=== PATIENT | female | born 2000 | race Caucasian/White ===

== ENCOUNTER 2022-04-26 11:13 | Observation (INO) | payer OTHER, SELFPAY ==
[2022-04-26] VITALS (13 sets, daily range): BP systolic 112; BP diastolic 70; PULSE 90–110; TEMP 36.4; O2SAT 97–99; BMI 31.1
--- NOTE | 2022-04-26 11:39 | OBADM ---
This patient, Ramona Murdock, admitted to the OB room 115 for observation for post fall evaluation. Patient/family oriented to hospital policies and general routines including ID bracelet, bed and alarms, visiting hours, pain management, procedures, bathroom and other care routines, personal items, smoking policy, room service/diet, and visiting hours. Patient/Family are encouraged to report perceived risks to care and to ask questions if they do not understand what they are told or what they should do.
--- NOTE | 2022-04-26 12:38 | PC.NURSE ---
Dr. Zaman informed of pt fall down the steps this morning around 0950. FHT's 145 with 10-12 beat accels at 30 wks gestation. Pt denies abdominal pain, tightening, or cramping. Denies leakage of fluid or vaginal bleeding. Pt has soreness in coccyx and right upper buttock where she landed. Blood type is A positive. OK to discharge to home.
--- NOTE | 2022-05-28 22:04 | PM.OBTRLD ---
OB - Triage/Final Diagnosis Visit Information Comments/Additional reasons for admission: I have assessed the risk for this patient, Ramona Murdock, and determined that she would benefit from observation care. Final Diagnosis (1) Sacrococcygeal pain: Code(s): M53.3 - Sacrococcygeal disorders, not elsewhere classified Status: Acute
== END 2022-04-26 12:50 | disposition home or self-care (01) ==
PROVIDERS: Admitting Provider Obstetrics & Gynecology; Visit Provider Obstetrics & Gynecology
DX: O26.893 Other specified pregnancy related conditions, third trimester (principal); M53.3 Sacrococcygeal disorders, not elsewhere classified; W10.9XXA Fall (on) (from) unspecified stairs and steps, initial encounter; Z3A.30 30 weeks gestation of pregnancy
CPT/HCPCS: G0378; G0379

== ENCOUNTER 2022-06-22 11:10 | Inpatient (IN) | payer OTHER, SELFPAY ==
[2022-06-22] VITALS (116 sets, daily range): BP systolic 87–148; BP diastolic 49–118; PULSE 58–141; RESP 16–18; TEMP 36.6–37.3; O2SAT 99–100; BMI 32.0
--- OUTSIDE RECORDS SUMMARY | 2022-06-22 11:15 | XMS_ITS | Encounter Summary ---
:2000 Author Reason for Visit OB visit Assessment and Plan Assessment Note Patient is _35_weeks . Discusse d plan. 1. Routine care Discussion Note: None recorded.Patient educational handouts: No information available. Plan of Care Reminders Provider Appointments None recorded. ? ? Lab None recorded. ? ? Referral None recorded. ? ? Procedures None recorded. ? ? Surgeries None recorded. ? ? Imaging None recorded. ? ? Medications Name Start Date ? ? albuterol sulfate HFA 90 mcg/actuation aerosol inhaler ? ID NOW COVID-19 Test Kit ? TEST DIRECTED TODAY Vitamin ? Virtussin AC 10 mg-100 mg/5 mL oral liquid ? Medications Administered None recorded. Vitals Height Weight BMI Blood Pressure 5 ft 2 in 223 lbs 40.8 kg/m2 129/79 mm[Hg] Results Lab Results None recorded. Allergies Code Code System Name Reaction Severity Onset 733 RxNorm Ampicillin ? ? ? Penicillins ? ? ? Problems Name Status Onset Date Source ? Amenorrhea Active 12/20/2017 History Detection Examination Active 12/20/2017 History Screening Active 01/02/2018 History , Childbirth and Puerperium Finding Active History , Childbirth and Puerperium Finding Active 10/2018 History Screening for Malformation Active 02/03/2018 History , Childbirth and Puerperium Finding Active 06/2018 History Gestation Period, 34 Weeks Active 05/29/2018 Histo ry Normal Pregnanc
--- OUTSIDE RECORDS SUMMARY | 2022-06-22 11:15 | XMS_ITS | Encounter Summary ---
:2000 Author Reason for Visit OB visit OB [id number] EDC 07/05/2022 LMP 09/28/2021 Assessment and Plan Assessment Note Patient is _38__weeks . Discuss ed plan. 1. Routine care Discussion Note: None [...] ft 2 in 223 lbs 40.8 kg/m2 142/85 mm[Hg] Results Lab Results None recorded. Allergies [...]
--- OUTSIDE RECORDS SUMMARY | 2022-06-22 11:15 | XMS_ITS | Encounter Summary ---
:2000 Author Reason for Visit None recorded. Assessment and Plan 1. Oligohydramnios ? US, obstetric, biophysical profile Discussion Note: None recorded.Patient educational handouts: No information available. Plan of Care Reminders Provider Appointments None recorded. ? ? Lab None recorded. ? ? Referral None recorded. ? ? Procedures None recorded. ? ? Surgeries None recorded. ? ? Imaging US, Obstetric, Biophysical Profile 06/13/2022 [place] Medications Name Start Date ? ? albuterol sulfate HFA 90 mcg/actuation aerosol inhaler ? ID NOW COVID-19 Test Kit ? TEST DIRECTED TODAY Vitamin ? Virtussin AC 10 mg-100 mg/5 mL oral liquid ? Medications Administered None recorded. Vitals None recorded. Results Lab Results None recorded. Allergies Code [...] 34 Weeks Active 05/29/2018 Histo ry Normal in Multigravida Active 05/29/2018 History Large Fetus Active 06/18/2018 History Gestation Period, 37 Weeks Active 06/18/2018 Histo
--- OUTSIDE RECORDS SUMMARY | 2022-06-22 11:15 | XMS_ITS | Encounter Summary ---
:2000 Author Reason for Visit None recorded. Assessment and Plan 1. Oligohydramnios ? US, obstetric, biophysical profile + non-stress test Discussion Note: None recorded.Patient educational handouts: No information available. Plan of Care Reminders Provider Appointments None recorded. ? ? Lab None recorded. ? ? Referral None recorded. ? ? Procedures None recorded. ? ? Surgeries None recorded. ? ? Imaging US, Obstetric, Biophysical Profile + 2 [place] Non-stress Test Medications Name Start Date ? ? albuterol [...] Active 05/29/2018 History Large Fetus Active 06/18/2018 Hist
--- OUTSIDE RECORDS SUMMARY | 2022-06-22 11:15 | XMS_ITS | Encounter Summary ---
[...] ? ? Imaging US, Obstetric, Biophysical Profile 06/22/2022 [place] Medications Name Start Date ? ? albuterol [...]
--- OUTSIDE RECORDS SUMMARY | 2022-06-22 11:15 | XMS_ITS | Encounter Summary ---
:2000 Author Reason for Visit None recorded. Assessment and Plan 1. screening ? US, obstetric, follow-up Discussion Note: None recorded.Patient educational handouts: No information available. Plan of Care Reminders Provider Appointments None recorded. ? ? Lab None recorded. ? ? Referral None recorded. ? ? Procedures None recorded. ? ? Surgeries None recorded. ? ? Imaging US, Obstetric, Follow-up 05/04/2022 [facility] Medications Name Start Date ? ? albuterol [...] Gestation Period, 37 Weeks Active 06/18/2018 Histo ry
--- OUTSIDE RECORDS SUMMARY | 2022-06-22 11:15 | XMS_ITS ---
:2000 Author Care Team Providers Name Role Phone Braxton Zaman Primary Care Provider Unavailable Allergies Code Code System Name Reaction Severity Status Onset 733 RxNorm Ampicillin ? ? Active ? Penicillins ? ? Active ? Medications Name Status Start Date Stop Date ? ? albuterol sulfate HFA 90 mcg/actuation aerosol Active ? Not available inhaler benzonatate 100 mg capsule Completed ? 08/16 Depo-Provera 150 mg/mL intramuscular suspension Unknown ? Not available Inject 1 mL every 3 months by intramuscular route. doxycycline hyclate 100 mg tablet Completed ? 03/08/2022 ID NOW COVID-19 Test Kit Active ? Not frannie ilable TEST DIRECTED TODAY 11/30 (28) 1 mg-20 mcg (21)/75 mg (7) tablet Completed ? 03/08/2022 TAKE 1 TABLET BY MOUTH ONCE DAILY CONTINOUSLY Macrobid 100 mg capsule Completed 06/10/2018 06/19/20 18 take 1 capsule by oral route every 12 hours with food Depo-Provera 150 mg/mL intramuscular syringe Active Not available inject 1 milliliter by intramuscular route every 3 months oseltamivir 75 mg capsule Completed ? 2019 Vitamin Active ? Not available Virtussin AC 10 mg-100 mg/5 mL oral liquid Active ? Not available Problems Name Status Onset Date Source ? Amenorrhea Active 12/20/2017 History Detection Examination Active 12/20/2017 History Screening Active 01/02/2018 History , Childbirth and Puerperium Finding Active History , Childbirth and Puerperium Finding Active 10/2018 History Screening for Malformation Active 02/03/2018 History , Childbirth and P
--- OUTSIDE RECORDS SUMMARY | 2022-06-22 11:15 | XMS_ITS | Encounter Summary ---
:2000 Author Reason for Visit OB visit Assessment and Plan Assessment Note Patient is ___weeks . Discussed plan. 1. Routine care Discussion Note: None [...] ft 2 in 223 lbs 40.8 kg/m2 123/77 mm[Hg] Results Lab Results None recorded. Allergies [...]
--- OUTSIDE RECORDS SUMMARY | 2022-06-22 11:15 | XMS_ITS | Encounter Summary ---
:2000 Author Reason for Visit None recorded. Assessment and Plan 1. Uterine size for dates discrepancy ? US, obstetric, follow-up Discussion Note: None recorded.Patient educational handouts: No information available. Plan of Care Reminders Provider Appointments None recorded. ? ? Lab None recorded. ? ? Referral None recorded. ? ? Procedures None recorded. ? ? Surgeries None recorded. ? ? Imaging US, Obstetric, Follow-up 06/01/2022 [facility] Medications Name Start Date ? [...]
--- OUTSIDE RECORDS SUMMARY | 2022-06-22 11:16 | XMS_ITS | Encounter Summary ---
:2000 Author Reason for Visit OB visit OB [id number] EDC 07/05/2022 LMP 09/28/2021 Assessment and Plan 1. Routine care Discussion Note: None recorded.Patient [...] BMI Blood Pressure 5 ft 2 in 225 lbs 41.2 kg/m2 116/80 mm[Hg] Results Lab Results None recorded. Allergies [...] Normal in Multigravida Active 05/29/2018 History Large Fe
--- OUTSIDE RECORDS SUMMARY | 2022-06-22 11:16 | XMS_ITS | Encounter Summary ---
[...] ? ? Imaging US, Obstetric, Biophysical Profile 05/11/2022 [place] Medications Name Start Date ? ? albuterol [...] Gestation Period, 37 Weeks Active 06/18/2018 Histo r
--- OUTSIDE RECORDS SUMMARY | 2022-06-22 11:16 | XMS_ITS | Encounter Summary ---
:2000 Author Reason for Visit OB visit OB [id number] EDC 07/05/2022 LMP 09/28/2021 Assessment and Plan [...]
--- OUTSIDE RECORDS SUMMARY | 2022-06-22 11:16 | XMS_ITS | Encounter Summary ---
[...] BMI Blood Pressure 5 ft 2 in 217 lbs 39.7 kg/m2 127/81 mm[Hg] Results Lab Results None recorded. Allergies [...]
--- OUTSIDE RECORDS SUMMARY | 2022-06-22 11:16 | XMS_ITS | Encounter Summary ---
[...] ? ? Imaging US, Obstetric, Biophysical Profile 06/07/2022 [place] Medications Name Start Date ? ? albuterol [...]
--- OUTSIDE RECORDS SUMMARY | 2022-06-22 11:16 | XMS_ITS | Encounter Summary ---
[...] ? Imaging US, Obstetric, Biophysical Profile 06/22/2022 [place] Medications Name Start Date ? ? albuterol [...]
--- OUTSIDE RECORDS SUMMARY | 2022-06-22 11:16 | XMS_ITS | Encounter Summary ---
[...] recorded. ? ? Imaging US, Obstetric, Follow-up 04/06/2022 [facility] Medications Name Start Date ? [...]
--- OUTSIDE RECORDS SUMMARY | 2022-06-22 11:16 | XMS_ITS | Encounter Summary ---
[...] BMI Blood Pressure 5 ft 2 in 219 lbs 40.1 kg/m2 128/81 mm[Hg] Results Lab Results None recorded. Allergies [...]
--- OUTSIDE RECORDS SUMMARY | 2022-06-22 11:16 | XMS_ITS | Encounter Summary ---
[...] BMI Blood Pressure 5 ft 2 in 220 lbs 40.2 kg/m2 126/82 mm[Hg] Results Lab Results None recorded. Allergies [...]
--- OUTSIDE RECORDS SUMMARY | 2022-06-22 11:16 | XMS_ITS | Encounter Summary ---
[...] Imaging US, Obstetric, Biophysical Profile + 2 [place] Non-stress Test Medications Name Start Date ? [...]
--- NOTE | 2022-06-22 11:29 | LDADM ---
This patient, Ramona Murdock, was admitted to Labor/Delivery/Recovery 107 on 06/22/22 at 11:10. Plans for labor, pain management and were discussed with patient. Patient/family oriented to hospital policies and general routines including ID bracelet, bed and alarms, visiting hours, pain management, procedures, bathroom and other care routines, personal items, smoking policy, room service/diet and guest tray routines, security routines, and visiting hours. Patient/Family are encouraged to report perceived risks to care and to ask questions if they do not understand what they are told or what they should do. See OBIX for further documentation.
[2022-06-22 11:41] LABS: Basophils Percent Auto 0.2 % (0.2-1.2); Eosinophils Percent Auto 0.3 % (0-4.4); Hematocrit 35.9 % (37.0-47.0); Hemoglobin 11.5 g/dL (12.0-15.0); Immature Granulocyte Absolute 0.05 K/mm3 (0.00-0.031); Immature Granulocyte Percent A 0.5 % (0-0.5); Lymphocytes Absolute Auto 1.52 K/mm3 (0.9-3.2); Lymphocytes Percent Auto 16.6 % (18.3-44.2); Mean Corpuscular Hemoglobin 27.4 pg (26-34); Mean Corpuscular Volume 85.7 fl (80-100); Mean Platelet Volume 9.9 fl (7.4-10.4); Monocytes Absolute Auto 0.3 K/mm3 (0.1-0.6); Monocytes Percent Auto 3.6 % (2.6-8.5); Neutrophils Absolute Auto 7.2 K/mm3 (1.3-6.7); Neutrophils Percent Auto 78.8 % (45.5-73.1); Platelet Count Result 292 k/mm3 (150-375); Red Blood Count 4.19 M/mm3 (4.2-5.4); Red Cell Distribution Width 13.5 % (11.5-14.5); White Blood Count 9.2 K/mm3 (4.5-10.0)
[2022-06-22] MEDS: LACTATED RINGERS 1,000 ML 125 ML IV CONT (11:43)
[2022-06-22] MEDS: OXYTOCIN 30 UNITS/NS 500 ML 30 UNITS/500 ML BAG 6 UNITS IV CONT (11:46)
--- NOTE | 2022-06-22 12:48 | PM.IMHP ---
H&P: HPI History of Present Illness Date/Time: 06/22/22 12:48 Chief Complaint: induction of labor Narrative: Ramona is a 22yo at 38.1 for induction for oligohydramnios with REVA of 4 in office today. On pitocin. Just AROMed now, clear. Review of Systems Review of Systems: All systems reviewed & are unremarkable except as noted in HPI and below PMFSH Family History Family History (Updated 06/04/22 @ 14:17 by Altagracia Velarde RN) Grandparent Diabetes mellitus Heart disease Mother Gestational diabetes Social History Social History Smoking status: Never smoker Second hand tobacco smoke exposure: No Substance use: never Spiritual care concerns: No Meds Home Medications and Allergies Home Medications Medication Instructions Recorded Confirmed Type aspirin 81 mg chewable tablet 81 mg PO DAILY 04/26/22 06/22/22 History famotidine 20 mg tablet (Pepcid) 20 mg PO BID 04/26/22 06/22/22 History vit no.95-ferrous 1 tablet PO DAILY 04/26/22 06/22/22 History fumarate 28 mg-folic acid 800 mcg tablet () Allergies Allergy/AdvReac Type Severity Reaction Status Date / Time amoxicillin Allergy Mild RASH Verified 06/04/22 14:15 Penicillins Allergy Mild Rash Verified 06/04/22 14:15 Vital Signs Vital Signs - 24 hr 06/22/22 11:42 06/22/22 11:46 06/22/22 12:15 Temperature 98 F Pulse Rate 88 82 Blood Pressure 128/80 127/79 06/22/22 12:16 06/22/22 12:31 Temperature Pulse Rate 80 85 Blood Pressure 118/72 126/74 Exam Const: General: no acute distress Resp: Effort & Inspection: normal respiratory effort Auscultation: clear to auscultation bilaterally Cardio: Rate: regular rate Rhythm: regular rhythm GI: GI Palp: Yes Soft to palpation Extrem: General: normal to inspection H&P: Results Labs Labs: Short CBC 06/22/22 Range/Units 11:35 WBC 9.2 (4.5-10.0) K/mm3 Hgb 11.5 L (12.0-15.0) g/dL Hct 35.9 L (37.0-47.0) % Plt Count 292 (150-375) k/mm3 Assessment and Plan Assessment and plan (1) Oligohydramnios antepartum: Code(s): O41.00X0 - Oligohydramnios, unspecified trimester, not applicable or unspecified Status: Acute Plan GBS neg pitocin FHT category 1 AROM clear /-2
[2022-06-22] MEDS: LACTATED RINGERS 1,000 ML 999 ML IV CONT (14:53)
--- NOTE | 2022-06-22 15:15 | WPDANESEPPF ---
Anes - Initial Pre Proc Eval Date/Time: 06/22/22 15:15 Surgeon: Janice St MD Pre Op Diagnosis: Induction of Labor Patient Data Age: 22 Gender: F Height: 1.78 m Weight: 101.3 kg Last Vital Signs Temp 37.3 C 06/22/22 15:12 Pulse 103 H 06/22/22 15:13 BP 122/72 06/22/22 15:13 Pulse Ox 100 06/22/22 15:13 Allergies Allergy/AdvReac Type Severity Reaction Status Date / Time amoxicillin Allergy Mild RASH Verified 06/04/22 14:15 Penicillins Allergy Mild Rash Verified 06/04/22 14:15 Home Medications Medication Instructions Recorded Confirmed Type aspirin 81 mg chewable tablet 81 mg PO DAILY 04/26/22 06/22/22 History famotidine 20 mg tablet (Pepcid) 20 mg PO BID 04/26/22 06/22/22 History vit no.95-ferrous 1 tablet PO DAILY 04/26/22 06/22/22 History fumarate 28 mg-folic acid 800 mcg tablet () Laboratory Tests 06/22/22 06/22/22 06/22/22 11:35 11:35 11:35 WBC 9.2 K/mm3 K/mm3 (4.5-10.0) RBC 4.19 M/mm3 L M/mm3 (4.2-5.4) Hgb 11.5 g/dL L g/dL (12.0-15.0) Hct 35.9 % L % (37.0-47.0) MCV 85.7 fl fl (80-100) MCH 27.4 pg pg (26-34) MCHC 32.0 g/dl g/dl (32-36) RDW 13.5 % % (11.5-14.5) Plt Count 292 k/mm3 k/mm3 (150-375) MPV 9.9 fl fl (7.4-10.4) Immature Gran % (Auto) 0.5 % % (0-0.5) Neut % (Auto) 78.8 % H % (45.5-73.1) Lymph % (Auto) 16.6 % L % (18.3-44.2) [place] % (Auto) 3.6 % % (2.6-8.5) Eos % (Auto) 0.3 % % (0-4.4) Baso % (Auto) 0.2 % % (0.2-1.2) Lymph # (Auto) 1.52 K/mm3 K/mm3 (0.9-3.2) [place] # (Auto) 0.3 K/mm3 K/mm3 (0.1-0.6) Eos # (Auto) 0.0 K/mm3 K/mm3 (0-0.3) Baso # (Auto) 0.0 K/mm3 K/mm3 (0.0-0.1) Abs Immat Gran (auto) 0.05 K/mm3 H K/mm3 (0.00-0.031) Absolute Neuts (auto) 7.2 K/mm3 H K/mm3 (1.3-6.7) Absolute Nucleated RBC 0.0 K/mm3 K/mm3 (0.0-0.012) Nucleated RBC % 0.0 % % (0.0-0.2) RPR Pending Blood Type A Positive Antibody Screen Negative Patient hx anesthesia problems: none Family hx anesthesia problems: none Results Review: All pre-operative results and documents have been reviewed as part of the pre-operative evaluation. [facility] Family History Family History Grandparent Diabetes mellitus Heart disease Mother Gestational diabetes Social History Social History Smoking status: Never smoker Second hand tobacco smoke exposure: No Substance use: never Spiritual care concerns: No Anes - Eval Final PreProcedure Day of Procedure 06/22/22 15:15 Patient weight: obese Neurological: alert and oriented ASA classification: II Emergent: no Anesthetic plan: proceed Anesthesia type and monitoring: regional epidural and standard monitoring Results Review: All pre-operative results and documents have been reviewed as part of the pre-operative evaluation. Informed Consent: The patient's anesthetic plan and its attendant risks and benefits were discussed with the patient/family/POA. Questions were solicited and answers provided to the satisfaction of the patient/family/POA.
--- NOTE | 2022-06-22 17:45 | P.PCNOB_ITS ---
OB - Delivery Note Procedure Delivery date: 06/22/22 Procedure: Events: Oligohydramnios Induction method: AROM and Per Pitocin Protocol Delivery monitor: External FHT and External Uterine Route of delivery: [place] Description: Perineal - 2nd Degree Delivery repair: vicryl Specimen: No Quantitative Blood Loss (ml): 75 Anesthesia type: Epidural Disposition: Floor Narrative: With adequate expulsive efforts by the mother, the baby's head was delivered OA. The baby's anterior shoulder was delivered under the pubic symphysis without difficulty. The posterior shoulder and the rest of the baby delivered without difficulty. The infant was placed on the mothers chest and suctioned and stimulated. The cord was clamped and cut after 30 seconds. Mother and baby both stable. [place] Baby Date of : 06/22/22 Time of : 17:27 Weeks of gestation at delivery: 38 gender: Female Weight (pounds): 7 Weight (ounces): 11 presentation: vertex Placenta delivery description: Spontaneous Cord Vessel Description: 3 Vessels and Delayed Cord Clamping score one minute: 9 score five minutes: 9
[2022-06-22] MEDS: OXYTOCIN 30 UNITS/NS 500 ML 30 UNITS/500 ML BAG 125 UNITS IV CONT (18:09)
--- NOTE | 2022-06-22 20:43 | OBPPTRN ---
Patient transferred to post room #280 via wheel chair. Support person present, (Joseph, spouse). Oriented to unit, room, information board, rooming in, admission packet and security measures. Patient verbalizes understanding.
[2022-06-22] MEDS: ACETAMINOPHEN 325 MG TABLET 650 MG PO (22:58)
[2022-06-23] MEDS: IBUPROFEN 600 MG TABLET PO ×3 (02:36→15:52)
[2022-06-23] MEDS: ACETAMINOPHEN 325 MG TABLET 650 MG PO (04:12)
[2022-06-23 04:15] VITALS: BP 126/85; PULSE 98; RESP 18; TEMP 36.6; O2SAT 99
[2022-06-23 05:45] LABS: Hematocrit 31.5 % (37.0-47.0); Hemoglobin 9.9 g/dL (12.0-15.0)
--- NOTE | 2022-06-23 08:05 | P.PNOB_ITS ---
OB - PN: Subj Subjective Date/time seen: 06/23/22 08:05 Patient comments: no complaints and pain well controlled baby status: doing well [place] feeding status: breast and bottle feeding Narrative: Baby up from level 2 a few hours ago and doing well. OB - PN: Obj Data Labs CBC & Chem 7: 06/23/22 04:44 Labs: Laboratory Results - last 24 hr 06/22/22 06/22/22 06/23/22 11:35 11:35 04:44 WBC 9.2 RBC 4.19 L Hgb 11.5 L 9.9 L Hct 35.9 L 31.5 L MCV 85.7 MCH 27.4 MCHC 32.0 RDW 13.5 Plt Count 292 MPV 9.9 Immature Gran % (Auto) 0.5 Neut % (Auto) 78.8 H Lymph % (Auto) 16.6 L [place] % (Auto) 3.6 Eos % (Auto) 0.3 Baso % (Auto) 0.2 Lymph # (Auto) 1.52 [place] # (Auto) 0.3 Eos # (Auto) 0.0 Baso # (Auto) 0.0 Abs Immat Gran (auto) 0.05 H Absolute Neuts (auto) 7.2 H Absolute Nucleated RBC 0.0 Nucleated RBC % 0.0 Blood Type A Positive Antibody Screen Negative OB - PN A/P Plan day: 1 Plan: routine care Time Spent With Patient Time: Total time spent is greater than 50% in coordination of care (as documented) at patient's floor/unit and/or counseling patient: Time with patient: less than 15 minutes Exam Narrative: NAD abdomen soft, nontender, fundus firm below the umbilicus Extremities nontender, 1+ edema
[2022-06-23 08:18] VITALS: BP 119/77; PULSE 77; RESP 18; TEMP 36.5; O2SAT 100
[2022-06-23] MEDS: MULTIVIT/MIN/PREN/FOL AC/IRON TABLET 1 TAB PO (08:18)
[2022-06-23] MEDS: DOCUSATE SODIUM 100 MG CAPSULE PO ×2 (08:18→15:53)
[2022-06-23] MEDS: POLYSACCHARIDE IRON COMPLEX 150 MG CAPSULE PO ×2 (08:18→15:53)
[2022-06-23 11:36] VITALS: BP 116/74; PULSE 69; RESP 18; TEMP 36.3; O2SAT 100
[2022-06-23 15:52] VITALS: BP 117/73; PULSE 89; RESP 16; TEMP 36.4; O2SAT 100
[2022-06-23 20:30] VITALS: BP 119/69; PULSE 84; RESP 18; TEMP 36.8
[2022-06-24] MEDS: IBUPROFEN 600 MG TABLET PO ×2 (03:59→09:41)
--- NOTE | 2022-06-24 08:09 | PM.OBPNVD ---
OB - PN: Subj Subjective Date/time seen: 06/24/22 08:09 Patient comments: no complaints baby status: doing well and nursing well OB - PN: Obj Data Labs CBC & Chem 7: 06/23/22 04:44 OB - PN A/P Plan day: 2 Plan: routine care and discharge home Time Spent With Patient Time: Total time spent is greater than 50% in coordination of care (as documented) at patient's floor/unit and/or counseling patient: Time with patient: less than 15 minutes Exam Narrative: NAD abdomen soft, nontender, fundus firm below the umbilicus Extremities nontender, 1+ edema
--- NOTE | 2022-06-24 08:12 | PM.DS ---
DS: Admitting Diagnosis Discharge Date 06/24/22 Admitting Diagnosis term IUP, oligohydramnios DS: Discharge Diagnosis Discharge Diagnosis (1) Oligohydramnios antepartum: Code(s): O41.00X0 - Oligohydramnios, unspecified trimester, not applicable or unspecified Status: Acute (2) , delivered: Code(s): O80 - Encounter for full-term uncomplicated delivery Status: Acute DS: Summary Hospital Course Hospital Course: Ramona was admitted for oligohydramnios at term and induced with pitocin. She proceeded to have an uncomplicated vaginal delivery and course and was discharged home on day 2. Status at Discharge Functional status at discharge: independent ambulation Time Spent with Patient Time attestation: Total time spent providing and/or coordinating discharge services: Exam Narrative: NAD abdomen soft, appropriately tender Ext non tender, 1+ edema Discharge Plan Discharge Attending physician on discharge: Janice St Discharging Clinician: Janice St Anticipated Discharge Date/Time: 06/24/22 08:11 Patient Disposition: Home, Self-Care Activity: pelvic rest Diet: regular Patient Instructions: Antibiotic Form Stand Alone Forms: General Discharge Information Follow-up/Referrals: Janice St MD [Physician] - Discharge Medications: Continued PNV cmb#95-ferrous fumarate-FA [] 28 mg iron- 800 mcg Tablet 1 tablet PO DAILY Discontinued famotidine [Pepcid] 20 mg Tablet 20 mg PO BID aspirin 81 mg Tablet,Chewable 81 mg PO DAILY Date of admission: 06/22/22 11:10 Primary Care Provider: UNKNOWN,DOCTOR Admitting Provider: Janice St Attending physician on admission: Janice St Condition: Stable
[2022-06-24 09:40] VITALS: BP 118/73; PULSE 87; RESP 18; TEMP 36.4; O2SAT 100
[2022-06-24] MEDS: POLYSACCHARIDE IRON COMPLEX 150 MG CAPSULE PO (09:40)
[2022-06-24] MEDS: MULTIVIT/MIN/PREN/FOL AC/IRON TABLET 1 TAB PO (09:40)
--- NOTE | 2022-06-24 14:55 | PC.NURSE ---
2511 Patient was given the opportunity to view the discharge video Mother & Baby Care, The First Two Weeks and to ask questions. Patient declined viewing the video and has been given the mother/baby guide for home reference.
[2022-06-25 07:50] LABS: Rapid Plasma Reagin Non-Reactive (NonReactive)
== END 2022-06-24 12:44 | disposition home or self-care (01) | DRG 560 ==
LOC: ANHLDR 11:16 → ANHOB2 20:44
PROVIDERS: Admitting Provider Obstetrics & Gynecology; Visit Provider Obstetrics & Gynecology
DX: O41.03X0 Oligohydramnios, third trimester, not applicable or unspecified (principal); O70.1 Second degree perineal laceration during delivery; Z3A.38 38 weeks gestation of pregnancy; Z37.0 Single live birth
CPT/HCPCS: 36415; 85014; 85018; 85025; 86592; 86850; 86900; 86901; A9270; J2590; J2795; J7120

== ENCOUNTER 2022-10-08 17:25 | Emergency (ER) | payer OTHER, SELFPAY ==
[2022-10-08 17:47] VITALS: BP 137/81; PULSE 122; RESP 18; TEMP 36.8; O2SAT 100
--- NOTE | 2022-10-08 17:55 | ED.URI ---
HPI - URI/Sore Throat General Chief Complaint: Upper Respiratory Infection Stated Complaint: sorethroat Time Seen by Provider: 10/08/22 17:47 Source: patient Mode of arrival: ambulatory Limitations: no limitations History of Present Illness HPI Narrative: Mrs. Murdock a 22-year-old female patient presenting to the clinic today with complaints of sore throat, headache, body aches x1 day. She reports she had her son here over the weekend and he tested positive for strep. MD elicited complaint: sore throat Related Data Allergies Allergy/AdvReac Type Severity Reaction Status Date / Time amoxicillin AdvReac Mild RASH Verified 10/08/22 17:44 Penicillins AdvReac Mild Rash Verified 10/08/22 17:44 Review of Systems Review of Systems: Pertinent positives per HPI. Patient denies any fever, chills, rash, visual changes, dizziness, cough, shortness of breath, chest pain, palpitations, nausea, vomiting, diarrhea, constipation, abdominal pain, or any urinary issues. [facility] Family History Family History Grandparent Diabetes mellitus Heart disease Mother Gestational diabetes Social History Social History Smoking status: Never smoker Second hand tobacco smoke exposure: No Substance use: never Spiritual care concerns: No Comments At the time of my signature, I reviewed and agree with the nursing past medical, surgical, social, and family history. There is no relevant family history pertinent to the patient complaint. Exam Narrative: General: Well-developed, well nourished, in no apparent distress Head: Normocephalic, atraumatic Eyes: Pupils equally round and reactive to light bilaterally, EOM intact, sclera and conjunctive clear, no discharge, lids normal Ears: TMs intact and clear, ear canals clear, no drainage, grossly hearing normal. Nose: Nares patent, no discharge, no inflammation, no sinus tenderness. Mouth: Oral pharynx without lesions or masses, good dentition, MMM. Oropharynx red with swollen tonsil Neck: Supple, trachea midline, enlargement of anterior cervical nodes, no thyroid masses or goiter palpable. Cardio: Regular rate and rhythm, s1 and s2 normal, no murmur appreciated. Resp: Clear to auscultation bilaterally, no rhonchi, rales, wheezing or rubs Course Course Emergency Course: Portions of this record may have been created with voice recognition software. Level of Care: Express Care Visit Vital Signs Vital signs: Vital Signs Temperature 36.8 C 10/08/22 17:47 Pulse Rate 122 H 10/08/22 17:47 Respiratory Rate 18 10/08/22 17:47 Blood Pressure 137/81 10/08/22 17:47 Pulse Oximetry 100 10/08/22 17:47 Oxygen Delivery Room Air 10/08/22 17:47 Temperature 36.8 C 10/08/22 17:47 Pulse Rate 122 H 10/08/22 17:47 Respiratory Rate 18 10/08/22 17:47 Blood Pressure 137/81 10/08/22 17:47 Pulse Oximetry 100 10/08/22 17:47 Oxygen Delivery Room Air 10/08/22 17:47 Vital signs reviewed MDM - URI/Sore Throat MDM Narrative Medical decision making narrative: at the time of visit patient is resting comfortably on the exam table. Strep screen was obtained was positive in the clinic today. Prescription for azithromycin was sent to the pharmacy. Supportive measures were discussed with the patient she voiced understanding of discharge instructions and agrees to the treatment plan. Differential Diagnosis Differential diagnosis: Likely sinusitis, viral infection, influenza and pharyngitis Lab Data Labs: Strep Screen Positive Group A Strep *(Reference Range: Negative)* Discharge Plan Discharge Clinical Impression: Strep throat Patient Disposition: Home, Self-Care Condition: Stable Instructions: Antibiotic Form, Strep Throat (ED) Additional Instructions: Take prescription medications onl
== END 2022-10-08 18:00 | disposition home or self-care (01) ==
PROVIDERS: Emergency Provider Nurse Practitioner Family
DX: J02.0 Streptococcal pharyngitis (principal)
CPT/HCPCS: 87880; 99213; G0463

== ENCOUNTER 2023-01-11 09:20 | Emergency (ER) | payer OTHER, SELFPAY ==
[2023-01-11 09:36] VITALS: BP 133/77; PULSE 90; RESP 16; TEMP 36.4; O2SAT 100
--- NOTE | 2023-01-11 10:15 | ED.EAR ---
HPI - Ear Problem General Chief complaint: Ear Stated complaint: rt ear pain Time Seen by Provider: 01/11/23 10:15 Source: patient Mode of arrival: ambulatory Limitations: no limitations History of Present Illness HPI Narrative: 23-year-old female presented for complaint of right ear pain for about 1 week. Endorses decreased hearing, occasional dizziness and occasional tinnitus. Denies drainage, n/v/d/f/c. She endorses recent sinus congestion and drainage and has been taking Sudafed, Motrin, and antihistamines for symptoms. She denies sick contacts. MD Complaint: ear pain Related Data Home Medications Medication Instructions Recorded Confirmed norelgestromin 150 mcg-e.estradiol 1 patch WEEKLY 01/11/23 01/11/23 35 mcg/24 hr weekly transderm patch (Xulankassandra) Allergies Allergy/AdvReac Type Severity Reaction Status Date / Time amoxicillin AdvReac Mild RASH Verified 01/11/23 09:50 Penicillins AdvReac Mild Rash Verified 01/11/23 09:50 Review of Systems Review of Systems: CONSTITUTIONAL: Denies malaise, chills, or fever. EYES: Denies visual changes, redness, or discharge. ENT: Denies sinus pain and sore throat. Reports ear pain, rhinorrhea, congestion CARDIOVASCULAR: Denies chest pain, palpitations, or edema. RESPIRATORY: Denies cough or dyspnea. GASTROINTESTINAL: Denies abdominal pain, nausea, vomiting, diarrhea SKIN: Denies rash or itching. MUSCULOSKELETAL: Denies myalgia. All systems reviewed & are unremarkable except as noted in HPI and below PMFSH Past Medical History Medical History (Updated 01/11/23 @ 10:27 by Mary Johnson APRN) No pertinent past medical history Family History Family History Grandparent Diabetes mellitus Heart disease Mother Gestational diabetes Social History Social History Smoking status: Never smoker Second hand tobacco smoke exposure: No Substance use: never Spiritual care concerns: No Comments At time of signature, agree with nursing past medical, surgical, social and family history. There is no relevant family history pertinent to the presenting complaint Exam Narrative: GENERAL: appears in pain; no acute distress. HEAD: Normocephalic EYES: PERRLA, conjunctivae clear ENT: Nares clear. Mucous membranes moist. Left TM pearly balderas with dull light reflex, scar tissue; Right TM erythematous and bulging, tender; no tragal or mastoid tenderness. Oropharynx not erythematous. no drooling, no hoarseness, no trismus, uvula midline. NECK: Supple. No lymphadenopathy CHEST: Clear to auscultation, breath sounds equal. HEART: Regular rate and rhythm. No murmur heard. SKIN: Warm, dry, no rash. NEURO: Alert and oriented x3. PSYCH: Normal mood and affect Course Course Emergency Course: Patient is aware of diagnosis, understands and agrees to treatment plan. Anticipatory guidance given. Patient agrees to follow-up as directed and is aware of reasons to seek care at the emergency department. Portions of this record may have been created with voice recognition software Level of Care: Express Care Visit Vital Signs Vital signs: Vital Signs Temperature 97.5 F L 01/11/23 09:36 Pulse Rate 90 01/11/23 09:36 Respiratory Rate 16 01/11/23 09:36 Blood Pressure 133/77 01/11/23 09:36 Pulse Oximetry 100 01/11/23 09:36 Oxygen Delivery Room Air 01/11/23 09:36 Temperature 97.5 F L 01/11/23 09:36 Pulse Rate 90 01/11/23 09:36 Respiratory Rate 16 01/11/23 09:36 Blood Pressure 133/77 01/11/23 09:36 Pulse Oximetry 100 01/11/23 09:36 Oxygen Delivery Room Air 01/11/23 09:36 Reviewed Medical Decision Making MDM Narrative Medical decision making narrative: Right AOM. Advised supportive measures and signs/symptoms to go to the ER. Patient is appropriate for outpatient treatment and follow-up. Differential Diagnosis Differ
== END 2023-01-11 10:29 | disposition home or self-care (01) ==
PROVIDERS: Emergency Provider Nurse Practitioner Family
DX: H66.90 Otitis media, unspecified, unspecified ear (principal)
CPT/HCPCS: 99213; G0463

== ENCOUNTER 2023-08-21 12:53 | Emergency (ER) | payer OTHER, SELFPAY ==
[2023-08-21 13:02] VITALS: BP 132/71; PULSE 108; RESP 18; TEMP 36.8; O2SAT 100
--- NOTE | 2023-08-21 13:18 | ED.URI ---
HPI - URI/Sore Throat General Chief Complaint: Upper Respiratory Infection Stated Complaint: Sore Throat,Headache Time Seen by Provider: 08/21/23 13:14 Source: patient and RN notes reviewed Mode of arrival: ambulatory Limitations: no limitations History of Present Illness HPI Narrative: Patient presents today complaining of sore throat, fever up to 101, upset stomach, and headache since last night. Currently rates pain 5/10 and has been taking ibuprofen with mild relief. Related Data Home Medications Medication Instructions Recorded Confirmed norethindrone 1 mg-ethinyl 1 tablet PO DAILY 08/21/23 08/21/23 estradiol 20 mcg (24)-iron 75 mg (4) tablet (Liz 24 Fe) Allergies Allergy/AdvReac Type Severity Reaction Status Date / Time amoxicillin AdvReac Mild RASH Verified 08/21/23 12:56 Penicillins AdvReac Mild Rash Verified 08/21/23 12:56 Review of Systems Review of Systems: CONSTITUTIONAL: Denies body aches, chills, or sweats.+ fever EYES: Denies visual changes, redness, or discharge. ENT: Denies rhinorrhea, congestion, or otalgia.+ sore throat CARDIOVASCULAR: Denies chest pain, palpitations, or edema. RESPIRATORY: Denies cough or dyspnea. GASTROINTESTINAL: Denies abdominal pain, nausea, vomiting, or diarrhea.+ upset stomach GENITOURINARY: Denies dysuria or hematuria. SKIN: Denies rash, itching, or wounds. MUSCULOSKELETAL: Denies back pain, joint pain, or myalgia. NEUROLOGIC: Denies numbness, tingling, or weakness.+ headache PSYCH: Denies depression or anxiety. PMF Past Medical History Medical History No pertinent past medical history Family History Family History Grandparent Diabetes mellitus Heart disease Mother Gestational diabetes Social History Social History Smoking status: Never smoker Second hand tobacco smoke exposure: No Substance use: never Spiritual care concerns: No Comments At time of signature, I have reviewed and agree with nursing past medical, surgical, social and family history unless otherwise noted. Please see nursing chart for further information. There is no relevant family history pertinent to the presenting complaint Exam Narrative: GENERAL: Mildly ill-appearing, well-nourished, and in no acute distress. HEAD: Normocephalic, atraumatic. EYES: EOMI. No redness or drainage. Conjunctivae normal. ENT: Mucous membranes pink and moist. Nares clear. No rhinorrhea. TMs normal bilaterally. Throat erythematous with mild edema.. Uvula midline. NECK: Normal AROM. Supple. Mild anterior cervical chain lymphadenopathy CHEST: No respiratory distress. Clear to auscultation. HEART: Regular rate and rhythm. No murmur appreciated. Normal peripheral pulses. EXTREMITIES: Normal range of motion. No edema. SKIN: Warm, dry, no rash. Capillary refill normal. Normal skin turgor. NEURO: No focal deficits. Alert and oriented x3. Gait steady. PSYCH: Normal affect. No signs of depression or anxiety. Course Course Level of Care: Express Care Visit Vital Signs Vital signs: Vital Signs Temperature 98.3 F 08/21/23 13:02 Pulse Rate 108 H 08/21/23 13:02 Respiratory Rate 18 08/21/23 13:02 Blood Pressure 132/71 08/21/23 13:02 Pulse Oximetry 100 08/21/23 13:02 Oxygen Delivery Room Air 08/21/23 13:02 Temperature 98.3 F 08/21/23 13:02 Pulse Rate 108 H 08/21/23 13:02 Respiratory Rate 18 08/21/23 13:02 Blood Pressure 132/71 08/21/23 13:02 Pulse Oximetry 100 08/21/23 13:02 Oxygen Delivery Room Air 08/21/23 13:02 Reviewed. Pt has been instructed to follow up with her PCP regarding her elevated blood pressure today. MDM - URI/Sore Throat MDM Narrative Medical decision making narrative: Rapid strep positive. Prescription for Keflex sent to pharmac
== END 2023-08-21 13:24 | disposition home or self-care (01) ==
PROVIDERS: Emergency Provider Nurse Practitioner
DX: J02.0 Streptococcal pharyngitis (principal)
CPT/HCPCS: 87880; 99213; G0463

== ENCOUNTER 2023-10-05 14:42 | Emergency (ER) | payer SELFPAY ==
[2023-10-05 14:53] VITALS: BP 122/77; PULSE 121; RESP 18; TEMP 37.1; O2SAT 100
--- NOTE | 2023-10-05 15:25 | ED.URI ---
HPI - URI/Sore Throat General Chief Complaint: Upper Respiratory Infection Stated Complaint: Cough,Headache,Dizziness Time Seen by Provider: 10/05/23 14:44 Source: patient Mode of arrival: ambulatory Limitations: no limitations History of Present Illness HPI Narrative: 23-year-old female presents to [facility] complaints of fever, intermittent dizziness, body aches, chills, cough, nausea and vomiting for the past 2-3 days. Patient reports that her son was diagnosed with strep throat approximately 1 week ago. Patient has been taking [id number] Motrin, Tylenol and Vicks with minimal relief. Patient reports that she did not get her flu shot this season. Patient denies shortness of breath, wheezing, diarrhea, sore throat or ear pain. Patient is nonsmoker. Patient denies recent travel. MD elicited complaint: fever, rhinorrhea and nasal congestion Onset (ago): day(s) (3) Able to tolerate fluids by mouth: Yes Context: sick contacts Treatments prior to arrival: acetaminophen, ibuprofen and cold medicine Related Data Home Medications Medication Instructions Recorded Confirmed norethindrone 1 mg-ethinyl 1 tablet PO DAILY 08/21/23 08/21/23 estradiol 20 mcg (24)-iron 75 mg (4) tablet (Liz 24 Fe) Allergies Allergy/AdvReac Type Severity Reaction Status Date / Time amoxicillin AdvReac Mild RASH Verified 08/21/23 12:56 Penicillins AdvReac Mild Rash Verified 08/21/23 12:56 Review of Systems Constitutional: Constitutional: Reports chills, Denies fatigue, Reports fever(s) and Denies weakness ENT: Denies dizziness, Denies epistaxis, Denies nasal congestion and Denies sore throat Cardiovascular: Cardiovascular: Denies chest pain Respiratory: Respiratory: Reports cough, Denies dyspnea and Denies wheezing Gastrointestinal: Gastrointestinal: Denies abdominal pain, Denies diarrhea, Reports nausea and Reports vomiting Integumentary/Breasts: Skin/Breast: Denies erythema and Denies rash Neurologic: Denies dizziness, Denies syncope and Denies headache(s) [facility] Past Medical History Medical History No pertinent past medical history Family History Family History Grandparent Diabetes mellitus Heart disease Mother Gestational diabetes Social History Social History Smoking status: Never smoker Second hand tobacco smoke exposure: No Substance use: never Spiritual care concerns: No Comments At time of signature, I agree with nursing past medical, surgical, social and family history. There is no relevant family history pertinent to the presenting complaint. Exam Const: General: healthy appearing and no acute distress Nutritional Appearance: well nourished Orientation/consciousness: patient oriented x3 Limitations: no limitations HENMT: Head: normal to inspection Ears: external ears normal and TM's normal bilaterally Face/Nose/Sinus: Normal external nose present Face and sinus: normal facial exam and sinuses nontender Teeth and gingiva: dentition normal Throat: posterior oropharynx normal and uvula midline Eyes: Conjunctivae: conjunctivae normal Neck: Neck: normal visual inspection Resp: Effort & Inspection: normal respiratory effort and not labored Auscultation: clear to auscultation bilaterally, no crackles, no rales, no rhonchi and no wheezes Cardio: Rate: tachycardic Rhythm: regular rhythm Heart sounds: no murmurs Skin: General skin exam: normal color Rashes: no rashes Neuro: General: patient oriented x3 Psych: Affect: normal affect Attitude: cooperative Course Course Level of Care: Express Care Visit Vital Signs Vital signs: Vital Signs Temperature 37.1 C 10/05/23 14:53 Pulse Rate 121 H 10/05/23 14:53 Respiratory Rate 18 10/05/23 14:53 Blood Pressure 122/77 10/05/23 14:53 Pulse Oximetry 100 1
== END 2023-10-05 15:37 | disposition home or self-care (01) ==
PROVIDERS: Emergency Provider Nurse Practitioner Family
DX: J11.1 Influenza due to unidentified influenza virus with other respiratory manifestations (principal); Z20.822 Contact with and (suspected) exposure to COVID-19
CPT/HCPCS: 87081; 87426; 87804; 87880; 99213; C9803; G0463

== ENCOUNTER 2024-03-03 09:31 | Emergency (ER) | payer SELFPAY ==
[2024-03-03 10:08] VITALS: BP 119/72; PULSE 136; RESP 18; TEMP 36.8; O2SAT 99
--- NOTE | 2024-03-03 10:15 | ECG_ITS ---
SEE SCANNED COPY FOR CONFIRMED REPORT MTDD
--- NOTE | 2024-03-03 10:36 | ED.GENADULT ---
HPI - General Adult General Chief complaint: Upper Respiratory Infection Stated complaint: Sore Throat Source: patient Mode of arrival: ambulatory Limitations: no limitations History of Present Illness HPI narrative: Patient presents for evaluation of sore throat since yesterday. Reports associated hot flashes, chills, fatigue generalized body aches. Her son currently has strep. She denies any nausea, vomiting, diarrhea. She indicates her heart feels like it is racing. Her watch his notified her several times that her heart rate has been above 130 over the last 24 hrs. She states she has had periods of time where she has been tachycardic over the past eight years. When she was in high school she states her heart rate accelerated into the 190's during PE class. She was never referred to a medical professional for further workup. She states approximately once every three months she has periods of tachycardia with rates in 130-140's. She denies any chest pain or SOB during these episodes but does feel fatigued and her heart racing. She denies any stimulant use. She limits caffeine to one soda per day. States she is adherent to OC. Related Data Home Medications Medication Instructions Recorded Confirmed norethindrone 1 mg-ethinyl 1 tablet PO DAILY 08/21/23 03/03/24 estradiol 20 mcg (24)-iron 75 mg (4) tablet (Liz 24 Fe) Allergies Allergy/AdvReac Type Severity Reaction Status Date / Time amoxicillin AdvReac Mild RASH Verified 03/03/24 09:52 Penicillins AdvReac Mild Rash Verified 03/03/24 09:52 Review of Systems Review of Systems: CONSTITUTIONAL: Reports hot flashes, chills and fatigue. Denies objective fever EYES: Denies visual changes, redness, or discharge. ENT: Reports sore throat. Denies rhinorrhea, congestion, or otalgia. CARDIOVASCULAR: Reports sensation of racing heart rate. Denies chest pain or edema. RESPIRATORY: Denies cough or dyspnea. GASTROINTESTINAL: Denies abdominal pain, nausea, vomiting, or diarrhea. GENITOURINARY: Denies dysuria or hematuria. SKIN: Denies rash or itching. MUSCULOSKELETAL: Denies back pain, joint pain, or myalgia. NEUROLOGIC: Denies headache, numbness, dizziness, or weakness. PSYCHIATRIC: Denies anxiety or depression. [facility] Surgical History Surgical History History of tonsillectomy Family History Family History Grandparent Diabetes mellitus Heart disease Mother Gestational diabetes Social History Social History Smoking status: Never smoker Second hand tobacco smoke exposure: No Substance use: never Living arrangements: with family Gender identity (if verbalized by the patient): Female Spiritual care concerns: No Exam Narrative: GENERAL: Well-appearing, well-nourished, and in no acute distress. HEAD: Normocephalic, atraumatic. EYES: PERRLA and EOMI. ENT: Nares clear, no rhinorrhea or epistaxis. Mucous membranes moist. Posterior pharyngeal erythema without exudate. Uvula is midline. Bilateral TMs pearly balderas nonbulging NECK: Supple. No adenopathy or masses. No carotid bruits or JVD CHEST: Clear to auscultation. No respiratory distress. No wheezes rales or rhonchi HEART: Rate 140. Regular rhythm. No murmur heard. Normal peripheral pulses. ABDOMEN: Soft, nontender, nondistended, normal active bowel sounds. EXTREMITIES: Normal range of motion. No edema. SKIN: Warm, dry, no rash. NEURO: No focal deficits. Alert and oriented x3. PSYCH: Normal mood and affect. Course Course Emergency Course: This is a 24-year-old female who presented for evaluation of sore throat. Strep was positive. Will treat with cefdinir due to amoxicillin allergy. She has tolerated cephalosporins in the past. Her heart rate here was between 130-150 for the duration of her ti
== END 2024-03-03 10:30 | disposition short-term general hospital (02) ==
PROVIDERS: Emergency Provider Nurse Practitioner
DX: J02.0 Streptococcal pharyngitis (principal); R00.0 Tachycardia, unspecified
CPT/HCPCS: 87880; 93005; 99213; G0463

== ENCOUNTER 2024-03-03 10:59 | Emergency (ER) | payer MEDICAID, SELFPAY ==
--- NOTE | ~2024-03-03 | XR_ITS ---
EXAMINATION: XR chest 2V DATE: 03/03/2024 12:34 INDICATION: Tachycardia TECHNIQUE: frontal and lateral views of the chest were obtained. COMPARISON: None FINDINGS: The lungs are clear with no focal airspace opacities, pulmonary edema, pleural effusion or pneumothor ax. The cardiomediastinal silhouette is normal. Mild thoracic spondylosis. IMPRESSION: 1. No acute cardiopulmonary disease. Reviewed, dictated and finalized at location A.
[2024-03-03 11:05] VITALS: BP 129/97; PULSE 145; RESP 19; TEMP 37; O2SAT 100
--- NOTE | 2024-03-03 11:20 | ECG_ITS ---
SEE SCANNED COPY FOR CONFIRMED REPORT MTDD
[2024-03-03 11:27] VITALS: BP 111/81; PULSE 135; PULSE 138; RESP 20; O2SAT 100
[2024-03-03] MEDS: LACTATED RINGERS 2,000 ML 999 ML IV CONT (11:41)
[2024-03-03 11:48] LABS: Basophils Absolute Auto 0.1 K/mm3 (0.0-0.1); Basophils Percent Auto 0.3 % (0.2-1.2); Eosinophils Percent Auto 0.1 % (0-4.4); Hematocrit 43.3 % (37.0-47.0); Hemoglobin 14.1 g/dL (12.0-15.0); Immature Granulocyte Absolute 0.07 K/mm3 (0.00-0.031); Immature Granulocyte Percent A 0.4 % (0-0.5); Lymphocytes Absolute Auto 0.76 K/mm3 (0.9-3.2); Lymphocytes Percent Auto 4.5 % (18.3-44.2); Mean Corpuscular HGB Conc 32.6 g/dl (32-36); Mean Corpuscular Hemoglobin 28.5 pg (26-34); Mean Corpuscular Volume 87.7 fl (80-100); Mean Platelet Volume 9.8 fl (7.4-10.4); Monocytes Absolute Auto 0.5 K/mm3 (0.1-0.6); Monocytes Percent Auto 2.8 % (2.6-8.5); Neutrophils Absolute Auto 15.6 K/mm3 (1.3-6.7); Neutrophils Percent Auto 91.9 % (45.5-73.1); Platelet Count Result 232 k/mm3 (150-375); Red Blood Count 4.94 M/mm3 (4.2-5.4); Red Cell Distribution Width 12.8 % (11.5-14.5)
--- NOTE | 2024-03-03 11:58 | ED.ARRPALP ---
HPI - Arrhythmia/Palpitations General Chief Complaint: Arrhythmia/Palpitations Stated Complaint: high heart rate Time Seen by Provider: 03/03/24 11:20 History of Present Illness HPI narrative: This is a 24-year-old female, presents to the emergency department from urgent care for tachycardia. The patient states she was seen for sore throat diagnosed with strep pharyngitis, however her heart rate was noted to be in the 130s to 150s. She denies palpitations, chest pain or shortness of breath, though does feel fatigued. She has no other complaints at this time. Related Data Home Medications Medication Instructions Recorded Confirmed norethindrone 1 mg-ethinyl 1 tablet PO DAILY 08/21/23 03/03/24 estradiol 20 mcg (24)-iron 75 mg (4) tablet (Liz 24 Fe) Allergies Allergy/AdvReac Type Severity Reaction Status Date / Time amoxicillin AdvReac Mild RASH Verified 03/03/24 11:00 Penicillins AdvReac Mild Rash Verified 03/03/24 11:00 Review of Systems Review of Systems: CONSTITUTIONAL: Generalized fatigue Denies fever, chills, or sweats. EYES: Denies visual changes, redness, or discharge. ENT: Sore throat Denies rhinorrhea, congestion, or otalgia. CARDIOVASCULAR: Denies chest pain, palpitations, or edema. RESPIRATORY: Denies cough or dyspnea. GASTROINTESTINAL: Denies abdominal pain, nausea, vomiting, or diarrhea. GENITOURINARY: LMP 3 days ago. Denies dysuria or hematuria. SKIN: Denies rash or itching. MUSCULOSKELETAL: Denies back pain, joint pain, or myalgia. NEUROLOGIC: Denies headache, numbness, dizziness, or weakness. PSYCHIATRIC: Denies anxiety or depression. [facility] Surgical History Surgical History History of tonsillectomy Family History Family History Grandparent Diabetes mellitus Heart disease Mother Gestational diabetes Social History Social History Smoking status: Never smoker Second hand tobacco smoke exposure: No Substance use: never Living arrangements: with family Gender identity (if verbalized by the patient): Female Spiritual care concerns: No Exam Narrative: GENERAL: Well-developed, well-nourished, and in no acute distress. HEAD: Normocephalic, atraumatic. EYES: PERRLA and EOMI. ENT: Nares clear, no rhinorrhea or epistaxis. Mucous membranes moist. Oropharynx with tonsillar erythema, hypertrophy and exudate or other lesions. NECK: Supple. No adenopathy or masses. No carotid bruits or JVD CHEST: Clear to auscultation. No respiratory distress. No wheezes rales or rhonchi HEART: Tachycardic with regular rhythm. No murmur heard. Normal peripheral pulses. ABDOMEN: Soft, nontender, nondistended, normal active bowel sounds. EXTREMITIES: Normal range of motion. No edema. SKIN: Warm, dry, no rash. NEURO: Alert and oriented x3. No focal deficit. Moving all 4 limbs spontaneously PSYCH: Normal mood and affect. Course Course Emergency Course: 13:57 - Chest x-ray unremarkable. After 2 L IV fluids, patient's heart rate improved to the 1 teens. D-dimer negative, test negative. CBC demonstrates elevated white blood cell count of 17 that I attribute to her strep pharyngitis. Given the patient's family history of tachycardia without concerning cause, will discharge. I discussed the findings and recommendations with the patient. Discussed return and emergency precautions including signs/symptoms of ACS respiratory distress. The patient voiced understanding and agreement with the plan. All questions answered to her satisfaction. Vital Signs Vital signs: Vital Signs Temperature 98.6 F 03/03/24 11:05 Pulse Rate 145 H 03/03/24 11:05 Respiratory Rate 19 03/03/24 11:05 Blood Pressure 129/97 H 03/03/24 11:05 Pulse Oximetry 100 03/03/24 11:05 Oxygen Delivery Room Air 03/03/24 11:05 [place]
[2024-03-03 12:01] VITALS: BP 119/78; PULSE 121; RESP 13; O2SAT 100
[2024-03-03 12:08] LABS: Alanine Aminotransferase 23 U/L (6-35); Albumin Level 4.8 g/dL (3.5-5.1); Alkaline Phosphatase 94 U/L (38-126); Anion Gap 11 mmol/L (4-12); Aspartate Amino Transferase 33 U/L (14-36); Bilirubin,Total 1.3 mg/dL (0.2-1.3); Blood Urea Nitrogen 8 mg/dL (7-17); Carbon Dioxide 23 mmol/L (22-30); Chloride 100 mmol/L (98-107); Estimated CRCL calculation 132 ml/min; Estimated Glomerular Filt Rate > 60; Glucose 93 mg/dL (65-110); Potassium 3.5 mmol/L (3.4-5.0); Sodium 134 mmol/L (137-145)
[2024-03-03 12:12] LABS: D Dimer 0.37 ug/mL (<0.48)
[2024-03-03 12:21] VITALS: BP 126/89; PULSE 130; PULSE 134; RESP 17; O2SAT 100
[2024-03-03 12:33] VITALS: BP 124/80; PULSE 137; RESP 15; O2SAT 100
[2024-03-03 13:46] VITALS: BP 125/70; PULSE 138; RESP 19; O2SAT 100
[2024-03-03] MEDS: ACETAMINOPHEN 325 MG TABLET 650 MG PO (14:03)
== END 2024-03-03 14:11 | disposition home or self-care (01) ==
PROVIDERS: Emergency Provider Preventive Medicine Aerospace Medicine; Referring Provider Emergency Medicine
DX: R00.0 Tachycardia, unspecified (principal); J02.0 Streptococcal pharyngitis
CPT/HCPCS: 36415; 71046; 80053; 83735; 85025; 85380; 87880; 93005; 96360; 96361; 99284; A9270; J7120

== ENCOUNTER 2024-05-02 11:29 | Emergency (ER) | payer MEDICAID, SELFPAY ==
[2024-05-02 11:39] VITALS: BP 125/72; PULSE 129; RESP 20; TEMP 37.8; O2SAT 100
--- NOTE | 2024-05-02 11:51 | ED.GENADULT ---
HPI - General Adult General Chief complaint: Upper Respiratory Infection Stated complaint: throat pain/ rapid heart rate Time Seen by Provider: 05/02/24 11:53 Source: patient Mode of arrival: ambulatory Limitations: no limitations History of Present Illness HPI narrative: 24-year-old female patient presents to the [facility] with complaints of sore throat that started about 3:00 a.m. this morning. Patient states she has had fevers, body aches and chills. Patient states she has had a headache denies nausea vomiting. Patient states she was seen here in February and was diagnosed strep throat at that time does have history of tonsillectomy in the past. Related Data Home Medications Medication Instructions Recorded Confirmed norethindrone 1 mg-ethinyl 1 tablet PO DAILY 08/21/23 03/03/24 estradiol 20 mcg (24)-iron 75 mg (4) tablet (Liz 24 Fe) Allergies Allergy/AdvReac Type Severity Reaction Status Date / Time Penicillins Allergy Mild Rash Verified 05/02/24 11:39 amoxicillin AdvReac Mild RASH Verified 03/03/24 11:00 Review of Systems Review of Systems: CONSTITUTIONAL: positive fever, chills, and body aches, denies sweats. EYES: Denies visual changes, redness, or discharge. ENT: Denies rhinorrhea, congestion, Positive sore throat, denies otalgia. CARDIOVASCULAR: Denies chest pain, palpitations, or edema. RESPIRATORY: Denies cough or dyspnea. GASTROINTESTINAL: Denies abdominal pain, nausea, vomiting, or diarrhea. GENITOURINARY: Denies dysuria or hematuria. SKIN: Denies rash or itching. MUSCULOSKELETAL: Denies back pain, joint pain, or myalgia. NEUROLOGIC: positive headache, denies numbness, or weakness. PSYCHIATRIC: Denies anxiety or depression. [facility] Surgical History Surgical History History of tonsillectomy Family History Family History Grandparent Diabetes mellitus Heart disease Mother Gestational diabetes Social History Social History Smoking status: Never smoker Second hand tobacco smoke exposure: No Substance use: never Living arrangements: with family Gender identity (if verbalized by the patient): Female Spiritual care concerns: No Comments At the time of my signature I agree with nursing past medical history, surgical, social, and family history. There is no relevant family history pertinent to the presenting complaint. Exam Narrative: GENERAL: ill-appearing, well-nourished, and in no acute distress. HEAD: Normocephalic, atraumatic. EYES: PERRLA and EOMI. ENT: Nares clear, no rhinorrhea or epistaxis. Mucous membranes moist. posterior pharynx with erythema noted no tonsils present. No exudates or lesions present. NECK: Supple. No lymphadenopathy CHEST: Clear to auscultation. No respiratory distress. HEART: Regular rate and rhythm. No murmur heard. Normal peripheral pulses. ABDOMEN: Soft, nontender, nondistended, normal active bowel sounds. EXTREMITIES: Normal range of motion. No edema. SKIN: Warm, dry, no rash. NEURO: No focal deficits. Alert and oriented x3. Course Course Level of Care: Express Care Visit Vital Signs Vital signs: Vital Signs Temperature 37.8 C H 05/02/24 11:39 Pulse Rate 129 H 05/02/24 11:39 Respiratory Rate 20 05/02/24 11:39 Blood Pressure 125/72 05/02/24 11:39 Pulse Oximetry 100 05/02/24 11:39 Oxygen Delivery Room Air 05/02/24 11:39 Temperature 37.8 C H 05/02/24 11:39 Pulse Rate 129 H 05/02/24 11:39 Respiratory Rate 20 05/02/24 11:39 Blood Pressure 125/72 05/02/24 11:39 Pulse Oximetry 100 05/02/24 11:39 Oxygen Delivery Room Air 05/02/24 11:39 Vital signs reviewed. Medical Decision Making MDM Narrative Medical decision making narrative: Discussed with patient she is positive today for strep. Plan care patient is discha
== END 2024-05-02 12:10 | disposition home or self-care (01) ==
PROVIDERS: Emergency Provider Nurse Practitioner Family; Referring Provider Family Medicine
DX: J02.0 Streptococcal pharyngitis (principal)
CPT/HCPCS: 87880; 99213; G0463

== ENCOUNTER 2024-06-25 08:06 | Emergency (ER) | payer MEDICAID, SELFPAY ==
--- NOTE | 2024-06-25 08:17 | ED.URI ---
HPI - URI/Sore Throat General Chief Complaint: Upper Respiratory Infection Stated Complaint: sore throat Time Seen by Provider: 06/25/24 08:22 Source: patient, RN notes reviewed and old records reviewed Mode of arrival: ambulatory Limitations: no limitations History of Present Illness HPI Narrative: 24-year-old female presents to the [facility] with complaints of a sore throat that started last night. Did take 1 ibuprofen. Has a history of strep throat, history of tonsillectomy. Patient reports fevers 99-101. Treatments prior to arrival: ibuprofen Related Data Home Medications Medication Instructions Recorded Confirmed norethindrone 1 mg-ethinyl 1 tablet PO DAILY 08/21/23 06/25/24 estradiol 20 mcg (24)-iron 75 mg (4) tablet (Liz 24 Fe) Allergies Allergy/AdvReac Type Severity Reaction Status Date / Time Penicillins Allergy Mild Rash Verified 05/02/24 11:39 amoxicillin AdvReac Mild RASH Verified 03/03/24 11:00 Review of Systems Review of Systems: All systems reviewed & are unremarkable except as noted in HPI and below Constitutional: Constitutional: Reports as per HPI and Reports fever(s) Eyes: Eyes: Reports no additional eye complaints ENT: Reports as per HPI and Reports sore throat Cardiovascular: Cardiovascular: Reports as per HPI, Denies chest pain, Reports rapid heart rate and Denies dyspnea Respiratory: Respiratory: Reports no additional respiratory complaints, Denies chest congestion, Denies cough and Denies dyspnea Gastrointestinal: Gastrointestinal: Reports no additional gastrointestinal complaints, Denies abdominal pain, Denies nausea and Denies vomiting Musculoskeletal: Musculoskeletal: Reports no additional musculoskeletal complaints Integumentary/Breasts: Skin/Breast: Reports system reviewed and no additional complaints, except as docu Neurologic: Reports system reviewed and no additional complaints, except as documented Psychiatric: Psychiatric: Reports no additional psychiatric complaints Allergic/Immunologic: Allergic/Immunologic: Reports no additional allergic/immunologic complaints [facility] Surgical History Surgical History History of tonsillectomy Family History Family History Grandparent Diabetes mellitus Heart disease Mother Gestational diabetes Social History Social History Smoking status: Never smoker Second hand tobacco smoke exposure: No Substance use: never Living arrangements: with family Gender identity (if verbalized by the patient): Female Spiritual care concerns: No Comments At the time of my signature, I reviewed and agree with the nursing past medical, surgical, social, and family history. There is no relevant family history pertinent to the patient complaint. Exam Const: General: cooperative, healthy appearing, no acute distress, well developed, alert, tired appearing, uncomfortable and well nourished Nutritional Appearance: well nourished Orientation/consciousness: patient oriented x3 Limitations: no limitations HENMT: Head: normal to inspection Ears: hearing grossly normal bilaterally, external ears normal, TM's normal bilaterally, EAC's normal, mastoids normal and no periauricular adenopathy Face/Nose/Sinus: Normal external nose present, Normal nares present, Normal nasal mucous membranes and turbinates present, No nasal discharge present, normal facial exam and face symmetric Face and sinus: normal facial exam and face symmetric Mouth: Yes Normal oral and palatal mucosa present, Yes lip normal and Yes tongue normal Throat: uvula midline, tonsils absent and no uvular edema Eyes: General: appearance normal, both eyes and all related structures Alignment and Position: alignment normal Periorbital: periorbital findings normal Pupils: Equal, round and reactive pupils present
[2024-06-25 08:18] VITALS: BP 109/66; PULSE 147; RESP 18; TEMP 37.3; O2SAT 100
[2024-06-25 08:37] LABS: EDSTREPNEGPOS1 Presumptive Negative
[2024-06-25 08:47] VITALS: PULSE 139
[2024-06-25 08:51] LABS: EDINFLUASCREEN Negative; EDINFLUBSCREEN Negative
== END 2024-06-25 09:11 | disposition home or self-care (01) ==
PROVIDERS: Emergency Provider Nurse Practitioner
DX: J06.9 Acute upper respiratory infection, unspecified (principal); J02.9 Acute pharyngitis, unspecified; Z20.822 Contact with and (suspected) exposure to COVID-19
CPT/HCPCS: 87081; 87426; 87804; 87880; 99213; G0463